=== PATIENT | male | born 1960 | race Caucasian/White ===

== ENCOUNTER → 2023-11-04 10:17 | Outpatient (REF) | payer OTHER, SELFPAY | LOC: RAD 10:17 | PROVIDERS: ATTENDING PHYSICIAN Nurse Practitioner Family | DX: R05.1 Acute cough (principal) | CPT/HCPCS: 71046 ==

== ENCOUNTER → 2024-05-02 11:00 | Outpatient (REF) | payer OTHER, SELFPAY | LOC: CLAB 11:00 | PROVIDERS: ATTENDING PHYSICIAN Otolaryngology | DX: J32.8 Other chronic sinusitis (principal) | CPT/HCPCS: 87070; 87205 ==

== ENCOUNTER → 2024-05-18 13:17 | Outpatient (REF) | payer OTHER, SELFPAY | LOC: HWRAD 13:17 | PROVIDERS: ATTENDING PHYSICIAN Nurse Practitioner Family | DX: R05.9 Cough, unspecified (principal) | CPT/HCPCS: 71046 ==

== ENCOUNTER → 2024-07-03 12:00 | Outpatient (REF) | payer OTHER, SELFPAY | LOC: CLAB 12:00 | PROVIDERS: ATTENDING PHYSICIAN Otolaryngology | DX: J32.8 Other chronic sinusitis (principal) | CPT/HCPCS: 87070; 87147; 87186; 87205 ==

== ENCOUNTER → 2025-03-07 07:05 | Outpatient (REF) | payer OTHER, SELFPAY | LOC: HWRCS 07:05 | PROVIDERS: ATTENDING PHYSICIAN Internal Medicine Cardiovascular Disease; FAMILY PHYSICIAN Nurse Practitioner Family | DX: R06.09 Other forms of dyspnea (principal) | CPT/HCPCS: 93306 ==